=== PATIENT | female | born 1990 | race Caucasian/White ===

== ENCOUNTER 2017-03-26 09:06 | Emergency (ER) | payer BC ==
[2017-03-26] MEDS ORDERED: Ondansetron 4 MG Tab.DIS PO ONE (09:38)
[2017-03-26] MEDS ORDERED: Acetaminophen 325 MG Tab PO ONE (09:38)
--- NOTE | 2017-03-26 10:06 | CT ---
Head CT Technique: Multiple axial sections through the brain were obtained. Intravenous contrast was utilized. Comparison: Previous MRI brain of 04/17/[address] exam of 02/23/09. Findings: Ventricles along with basal cisterns and sulci over the convexities are within normal limits for the patient's age. No abnormal parenchymal densities are seen. No evidence of intracranial hemorrhage. No midline shift or mass effect is seen. Bone window settings were reviewed which shows scattered mucosal thickening within the ethmoid sinus and sphenoid sinus. No acute calvarial abnormality is appreciated. Impression: 1. Sinus findings as described above. Uncertain if findings are acute or chronic. 2. Noncontrast head CT study is otherwise unremarkable. Diagnostic code #3
--- NOTE | 2017-03-26 10:22 | EDM.PDOC ---
ED HPI GENERAL MEDICAL PROBLEM - General Chief Complaint: Head Injury Stated Complaint: HEAD INJURY Time Seen by Provider: 03/26/17 09:25 Source of Information: Reports: Patient, RN Notes Reviewed, Other (coworkers) - History of Present Illness INITIAL COMMENTS - FREE TEXT/NARRATIVE: 27-year-old female comes in with headache status post fall, syncope or LOC from fall and what has been described as brief seizure activity. She was at work, found in a "storeroom" on the floor having fallen and apparently hit the back of her head. When Her coworkers found her her body was "stiff and there was jerking activity for a very short period of time. when She did awaken she was drowsy, nauseated, dizzy and confused. She did vomit. This happened about 1 hour ago. she does feel better now, does have moderate headache, still feels nauseated and has no recollection of what happened. She does have some mild neck discomfort but not severe. No Major pain or injury to back pelvis upper or lower extremities. She does have history of neurocardiogenic syncope. He has had multiple episodes of passing out. She also has history of "multiple concussions". Head Pain Score (Numeric/FACES): 9 Neck Pain Score (Numeric/FACES): 7 - Related Data Allergies Allergy/AdvReac Type Severity Reaction Status Date / Time No Known Allergies Allergy Verified 03/26/17 09:12 Past Medical History - Past Health History Medical/Surgical History: Denies Medical/Surgical History Neurological History: Reports: Other (See Below) Other Neuro History: neuro-cardiogenic syncope Social & Family History - Tobacco Use Smoking Status *Q: Never Smoker - Caffeine Use Caffeine Use: Reports: None - Recreational Drug Use Recreational Drug Use: No ED ROS GENERAL - Review of Systems Review Of Systems: See Below Constitutional: Denies: Fever, Chills HEENT: Denies: Throat Pain, Vertigo, Vision Change Respiratory: Denies: Shortness of Breath, Pleuritic Chest Pain Cardiovascular: Denies: Chest Pain GI/Abdominal: Reports: Nausea, Vomiting. Denies: Abdominal Pain Musculoskeletal: Reports: Neck Pain. Denies: Shoulder Pain, Arm Pain, Leg Pain Skin: Reports: No Symptoms Neurological: Reports: Dizziness, Headache. Denies: Trouble Speaking, Difficulty Walking, Weakness ED EXAM, HEAD INJURY - Physical Exam Exam: See Below General Appearance: Alert, Mild Distress Head: Scalp Swelling (there is an area of swelling posterior occiput). No: Scalp Lacerations, Scalp Abrasions, Scalp Ecchymosis Throat/Mouth: Normal Inspection, Other (very small abrasion right distal tongue , no active bleeding). No: Tongue Swelling Neck: Tenderness (very mild tenderness posterior musculature, spine nontender) Respiratory: No Respiratory Distress, Lungs Clear, Normal Breath Sounds Cardiovascular: Regular Rate, Rhythm Back Exam: No: Paraspinal Tenderness, Vertebral Tenderness Extremities: Normal Inspection, Normal Range of Motion Neurologic: No Motor/Sensory Deficits, Normal Mood/Affect, Oriented x 3, Other ( finger to nose testing normal) Skin: Normal Color, Warm/Dry Course - Vital Signs Last Recorded V/S: Last Vital Signs Temp 96.5 F 03/26/17 09:13 Pulse 73 03/26/17 11:29 Resp 16 03/26/17 10:28 BP 101/70 03/26/17 11:29 Pulse Ox 96 03/26/17 11:29 Orthostatic Blood Pressure [ 131/80 Standing] Orthostatic Blood Pressure [ 132/88 Sitting] Orthostatic Blood Pressure [ 125/75 Supine] - Orders/Labs/Meds Labs: Laboratory Tests 03/26/17 03/26/17 Range/Units 09:55 09:55 WBC 6.65 (3.98-10.04) K/mm3 RBC 4.52 (3.98-5.22) M/mm3 Hgb 12.7 (11.2-15.7) gm/L Hct 38.2 (34.1-44.9) % MCV 84.5 (79.4-94.8) fl MCH 28.1 (25.6-32.2) pg MCHC 33.2 (32.2-35.5) g/dl RDW Std Deviation 41.5 (36.4-46.3) fL Plt Count 267 (182-369) K/mm3 MPV 10.3 (9.4-12.3) fl Neut % (Auto) 58.3 (34.0-71.1) % Lymph % (Auto) 30.5 (19.3-51.7) % [place] % (Auto) 7.2 (4.7-12.5) % Eos % (Auto) 3.8 (0.7-5.8) Baso % (Auto) 0.2 (0.1-1.2) % Neut # (Auto) 3.88 (1.56-6.13) K/mm3 Lymph # (Auto) 2.03 (1.18-3.74) K/mm3 [place] # (Auto) 0.48 H (0.24-0.36) K/mm3 Eos # (Auto) 0.25 (0.04-0.36) K/mm3 Baso # (Auto) 0.01 (0.01-0.08) K/mm3 Sodium 138 (136-145) mEq/L Potassium 4.0 (3.5-5.1) mEq/L Chloride 100 (98-107) mEq/L Carbon Dioxide 25 (21-32) mEq/L Anion Gap 17.0 H (5-15) BUN 15 (7-18) mg/dL Creatinine 0.8 (0.55-1.02) mg/dL Est Cr Clr Drug Dosing 101.81 mL/min Estimated GFR (MDRD) > 60 (>60) mL/min BUN/Creatinine Ratio 18.8 H (14-18) Glucose 130 H (74-106) mg/dL Calcium 9.7 (8.5-10.1) mg/dL Total Bilirubin 0.4 (0.2-1.0) mg/dL AST 19 (15-37) U/L ALT 30 (14-59) U/L Alkaline Phosphatase 71 (46-116) U/L Total Protein 8.3 H (6.4-8.2) g/dl Albumin 4.0 (3.4-5.0) g/dl Globulin 4.3 gm/dL Albumin/Globulin Ratio 0.9 L (1-2) Meds: Medications Discontinued Medications Generic Name Dose Route Start Last Admin Trade Name Freq PRN Reason Stop Dose Admin Acetaminophen 975 mg 03/26/17 09:38 03/26/17 09:50 Tylenol PO 03/26/17 09:39 975 mg NOW ONE Administration Ondansetron HCl 4 mg 03/26/17 09:38 03/26/17 09:45 Zofran Odt PO 03/26/17 09:39 4 mg ONETIME ONE Administration - Re-Assessments/Exams Free Text/Narrative Re-Assessment/Exam: 03/26/17 10:[address] does not show any acute findings., Patient did well with ortho's just a short time ago. 03/26/17 11:43.still has amnesia for what happened another details of earlier this morning otherwise doing quite well, headache is better than it was, no further nausea or vomiting. Discharge instructions as documented Departure - Departure Time of Disposition: 11:17 Disposition: Home, Self-Care 01 Condition: Fair Clinical Impression: Fall Qualifiers: Encounter type: initial encounter Qualified Code(s): W19.XXXA - Unspecified fall, initial encounter Concussion Qualifiers: Encounter type: initial encounter Loss of consciousness presence/duration: with LOC of 30 min or less Qualified Code(s): S06.0X1A - Concussion with loss of consciousness of 30 minutes or less, initial encounter - Discharge Information Instructions: Concussion, Adult, [id number] Referrals: Alda Nguyen BRICK PAVER [Primary Care Provider] - Forms: ED Department Discharge Additional Instructions: rest, no work recommended the remainder of this week, physical rest and brain rest is the initial primary treatment for concussion, increase activity slowly as tolerated, alternate Tylenol and ibuprofen as needed for discomfort, follow- up clinic if not getting back to normal by early next week as expected, return to ED if symptoms worsening in any way
[2017-03-26 11:31] VITALS: BP 101/70
== END 2017-03-26 11:31 | disposition home or self-care (01) ==
LOC: JD.ED 09:06
DX: S06.0X1A Concussion with loss of consciousness of 30 minutes or less, initial encounter (principal); W19.XXXA Unspecified fall, initial encounter
CPT/HCPCS: 36415; 70450; 80053; 85025; 99284; A9270